=== PATIENT | female | born 1945 | race Asian ===

== ENCOUNTER → 2024-06-01 10:16 | Outpatient (REF) | payer MEDICARE, SELFPAY ==
[2024-06-01 12:38] LABS: Albumin 4.3 g/dl (3.5-5.0); Blood Urea Nitrogen 28 mg/dl (7-17); Carbon Dioxide 30 mmol/L (22-30); Chloride 105 mmol/L (98-107); Glucose 118 mg/dl (70-99); Phosphorus 2.9 mg/dl (2.5-4.5); Potassium 4.4 mmol/L (3.5-5.1); Sodium 142 mmol/L (135-145); eGFR > 60.00
== END ==
LOC: RCS 10:16
PROVIDERS: ATTENDING PHYSICIAN Internal Medicine Cardiovascular Disease; FAMILY PHYSICIAN Family Medicine
DX: I42.8 Other cardiomyopathies (principal)
CPT/HCPCS: 36415; 80069; 93306